=== PATIENT | female | born 2000 | race Caucasian/White ===

== ENCOUNTER 2020-09-10 11:26 | Inpatient (IN) | payer OTHER, SELFPAY ==
[~2020-09-10] VITALS: Ht 160 cm; Wt 89.8 kg
[2020-09-10] MEDS ORDERED: PNV91TAB8 PO (11:49)
[2020-09-10] MEDS ORDERED: METHYLERGONOVINE 0.2 MG/ML AMP IM PRN ×2 (11:50→20:30)
[2020-09-10] MEDS ORDERED: LACTATED RINGERS 1,000 ML IV SCH (11:50)
[2020-09-10] MEDS ORDERED: CARBOPROST 250 MCG/ML AMP IM PRN (11:50)
[2020-09-10] MEDS ORDERED: MISOPROSTOL 25 MCG TAB VG PRN (11:50)
[2020-09-10] MEDS ORDERED: OXYTOCIN 20 UNITS in LACTATED RINGERS 1,000 ML IV SCH ×2 (11:50→21:15)
[2020-09-10 12:26] LABS: BASOPHILS # (AUTO) 0.1 K/uL (0.00-0.22); BASOPHILS % (AUTO) 0.8 % (0.0-2.0); EOSINOPHILS % (AUTO) 0.1 % (0.0-4.0); HEMATOCRIT 30.6 % (36-48); HEMOGLOBIN 9.6 g/dL (12.0-16.0); LYMPHOCYTES # (AUTO) 1.6 K/uL (2.5-16.5); LYMPHOCYTES % (AUTO) 17.5 % (20.5-51.1); MEAN CORPUSCULAR HEMOGLOBIN 22 pg (27-31); MEAN CORPUSCULAR HGB CONC 32 g/dL (33-37); MEAN CORPUSCULAR VOLUME 68.4 fL (80-94); MONOCYTES # (AUTO) 0.7 K/uL (0.8-1.0); MONOCYTES % (AUTO) 7.4 % (1.7-9.3); NEUTROPHILS # (AUTO) 6.7 K/uL (1.8-7.7); NEUTROPHILS % (AUTO) 74.2 % (42.2-75.2); PLATELET COUNT (AUTO) 193 K/uL (140-450); RED BLOOD CELL COUNT(AUTO) 4.47 MIL/uL (4.20-5.40); RED CELL DISTRIBUTION WIDTH 20.2 % (11.6-13.7)
[2020-09-10 12:51] LABS: BILIRUBIN,URINE NEGATIVE (NEGATIVE); BLOOD, URINE NEGATIVE (NEGATIVE); COLOR,URINE YELLOW (YELLOW); LEUKOCYTE ESTERASE ,URINE TRACE (NEGATIVE); NITRITE, URINE NEGATIVE (NEGATIVE); UGLUCOSE NEGATIVE (NEGATIVE)
[2020-09-10 12:52] LABS: APPEARANCE,URINE SLIGHTLY HAZY (CLEAR)
[2020-09-10 12:55] LABS: RBC,URINE 0-5 /HPF (0-5); WBC,URINE 0-5 /HPF (0-5)
[2020-09-10 12:59] LABS: ALBUMIN 2.4 g/dL (3.4-5.0); ANION GAP 15.5 (8-16); CARBON DIOXIDE 21.9 mmol/L (21-32); CREATININE 0.8 mg/dL (0.6-1.3); POTASSIUM 5.4 mmol/L (3.5-5.1); TOTAL BILIRUBIN 0.1 mg/dL (0.0-1.0)
[2020-09-10] MEDS ORDERED: CLINDAMYCIN 900 MG in DEXTROSE 5% 100 ML IV SCH (13:00)
[2020-09-10 13:32] VITALS: BP 130/84
[2020-09-10] MEDS ORDERED: METOCLOPRAMIDE 10 MG/2 ML INJ VIAL ONE (15:30)
[2020-09-10] MEDS ORDERED: ONDANSETRON 4 MG/2 ML VIAL ONE (15:30)
[2020-09-10] MEDS ORDERED: PHENYLEPHRINE 10 MG/ML VIAL ONE (15:30)
[2020-09-10] MEDS ORDERED: LIDOCAINE 2% 100 MG/5 ML SYR IVP ONE (15:30)
[2020-09-10] MEDS ORDERED: DEXAMETHASONE 4 MG/ML VIAL ONE (15:30)
[2020-09-10] MEDS ORDERED: fentaNYL citrate 0.05 MG/ML VIAL ONE ×2 (15:30→20:00)
[2020-09-10] MEDS ORDERED: MIDAZOLAM 2 MG/2 ML VIAL ONE ×2 (15:30→20:01)
[2020-09-10] MEDS ORDERED: MORPHINE PRES FREE 10 MG/10 ML AMP IV ONE ×2 (15:30→20:00)
[2020-09-10] MEDS ORDERED: CITRIC ACID/SODIUM CITRATE 30 ML UDC PO SCH (19:30)
[2020-09-10] MEDS ORDERED: CLINDAMYCIN 900 MG/6 ML VIAL IV ONE (19:46)
[2020-09-10] MEDS ORDERED: TEMAZEPAM 15 MG CAP PO PRN (20:30)
[2020-09-10] MEDS ORDERED: IBUPROFEN 800 MG TAB PO PRN (20:30)
[2020-09-10] MEDS ORDERED: oxyCODONE/APAP 5/325 MG 1 TAB TAB PO PRN (20:30)
[2020-09-10] MEDS ORDERED: KETOROLAC 30 MG/ML VIAL IVP PRN (20:30)
[2020-09-10] MEDS ORDERED: SODIUM PHOSPHATE 118 ML ENEM RC SCH (20:30)
[2020-09-10] MEDS ORDERED: SIMETHICONE 80 MG TAB.CHEW PO PRN (20:30)
[2020-09-10] MEDS ORDERED: OXYTOCIN 20 UNITS/LR PREMIX 1,000 ML IV ONE (21:01)
[2020-09-10] MEDS ORDERED: SODIUM PHOSPHATE 118 ML ENEM RC PRN (21:01)
[2020-09-10] MEDS ORDERED: diphenhydrAMINE 50 MG/ML VIAL IVP PRN ×2 (21:15→21:20)
[2020-09-10] MEDS ORDERED: ONDANSETRON 4 MG/2 ML VIAL IVP PRN ×2 (21:15→21:20)
[2020-09-10] MEDS ORDERED: MEPERIDINE 25 MG/ML SYR IVP PRN (21:15)
[2020-09-10] MEDS ORDERED: NALOXONE 0.4 MG/ML VIAL IVP PRN ×2 (21:20)
[2020-09-11] MEDS: KETOROLAC 30 MG/ML VIAL IM/IVP SCH ×5 (00:04→23:52)
[2020-09-11] MEDS ORDERED: OXYTOCIN 20 UNITS/LR PREMIX 1,000 ML IV ONE (04:38)
[2020-09-11] MEDS: OXYTOCIN 20 UNITS in LACTATED RINGERS 1,000 ML IV SCH ×2 (04:55→12:05)
[2020-09-11 05:12] LABS: BASOPHILS # (AUTO) 0.1 K/uL (0.00-0.22); BASOPHILS % (AUTO) 0.5 % (0.0-2.0); EOSINOPHILS % (AUTO) 0.1 % (0.0-4.0); HEMATOCRIT 30.9 % (36-48); HEMOGLOBIN 9.5 g/dL (12.0-16.0); LYMPHOCYTES # (AUTO) 1.3 K/uL (2.5-16.5); LYMPHOCYTES % (AUTO) 8.8 % (20.5-51.1); MEAN CORPUSCULAR HEMOGLOBIN 21 pg (27-31); MEAN CORPUSCULAR HGB CONC 31 g/dL (33-37); MEAN CORPUSCULAR VOLUME 68.8 fL (80-94); MONOCYTES # (AUTO) 0.6 K/uL (0.8-1.0); MONOCYTES % (AUTO) 3.8 % (1.7-9.3); NEUTROPHILS # (AUTO) 13.1 K/uL (1.8-7.7); NEUTROPHILS % (AUTO) 86.8 % (42.2-75.2); PLATELET COUNT (AUTO) 180 K/uL (140-450); RED BLOOD CELL COUNT(AUTO) 4.49 MIL/uL (4.20-5.40); WHITE BLOOD COUNT (AUTO) 15.1 K/uL (4.8-10.8)
--- NOTE | 2020-09-11 08:41 | NUR ---
PATIENT HAS BEEN SCREENED AND CATEGORIZED LOW NUTRITION RISK. PATIENT WILL BE SEEN WITHIN 7 DAYS OF ADMISSION. 09/16/[address]
[2020-09-11] MEDS: DOCUSATE SOD/SENNA 50/8.6 MG 1 TAB PO SCH (20:28)
[2020-09-12] MEDS: oxyCODONE/APAP 5/325 MG 1 TAB TAB PO PRN (17:23)
[2020-09-12] MEDS ORDERED: CAMERA MC ONE (20:16)
[2020-09-12] MEDS: DOCUSATE SOD/SENNA 50/8.6 MG 1 TAB PO SCH (20:23)
[2020-09-12] MEDS ORDERED: IBUPROFEN 800 MG TAB PO PRN (20:50)
[2020-09-13] MEDS: oxyCODONE/APAP 5/325 MG 1 TAB TAB PO PRN ×2 (00:57→14:46)
== END 2020-09-13 18:25 | disposition home or self-care (01) | DRG 540 ==
LOC: OBSVTOIN 11:26 → MFCC 11:26
PROVIDERS: ADMIT Obstetrics & Gynecology; ATTEND Obstetrics & Gynecology
PROC: 10D00Z1 Extraction of Products of Conception, Low, Open Approach (ICD-10-PCS; principal; 2020-09-10 20:15)
DX: O24.429 Gestational diabetes mellitus in childbirth, unspecified control (principal); Z3A.38 38 weeks gestation of pregnancy; Z37.0 Single live birth; O41.03X0 Oligohydramnios, third trimester, not applicable or unspecified; Z20.828 Contact with and (suspected) exposure to other viral communicable diseases; Z88.1 Allergy status to other antibiotic agents
CPT/HCPCS: 36415; 51702; 59200; 80053; 81001; 84132; 85025; 86592; 86886; 86900; 86901; J1100; J1885; J2001; J2250; J2270; J2370; J2405; J2590; J2765; J3010; J3490; J7060; J7120